=== PATIENT | male | born 1990 | race Caucasian/White ===

== ENCOUNTER 2016-11-14 18:26 | Emergency (ER) | payer SELFPAY ==
--- NOTE | 2016-11-14 19:56 | ED ---
Laceration/Wound HPI - HPI Summary HPI Summary: Patient arrives from work with a small .25cm laceration to the tip of his right index finger after cutting it with a knife. Patient denies numbness, tingling, color or temperature changes. The laceration affects the nail bed, but the nail is not cut through. Denies medications use, allergies and blood thinners. Denies previous injury to the finger. - History of Current Complaint Stated Complaint: FINGER LAC Time Seen by Provider: 11/14/16 19:20 Hx Obtained From: Patient Mechanism of Injury: Sharp/Blunt Trauma Onset/Duration: Sudden Onset Aggravating: Movement Alleviating: Compression Timing: Constant Onset Severity: Mild Current Severity: Mild Pain Intensity: 2 Pain Scale Used: 0-10 Numeric Associated Signs & Symptoms: Pain Related Hx: Occupational Injury, Dominant Hand (Right) - Allergy/Home Medications Allergies/Adverse Reactions: Allergies Allergy/AdvReac Type Severity Reaction Status Date / Time No Known Allergies Allergy Verified 11/14/16 18:28 PMH/Surg Hx/FS Hx/Imm Hx Previously Healthy: Yes Endocrine/Hematology History: Denies: Hx Diabetes, Hx Thyroid Disease Cardiovascular History: Denies: Hx Hypertension Respiratory History: Denies: Hx Asthma, Hx Chronic Obstructive Pulmonary Disease (COPD) GI History: Denies: Hx Ulcer Infectious Disease History: No Infectious Disease History: Denies: Hx Clostridium Difficile, Hx Hepatitis, Hx Human Immunodeficiency Virus (HIV), Hx of Known/Suspected MRSA, Hx Shingles, Hx Tuberculosis, Hx Known/ Suspected VRE, Hx Known/Suspected VRSA, History Other Infectious Disease, Traveled Outside the [place] in Last 30 Days - Family History Known Family History: Positive: Cardiac Disease - grandfather of CHF, Other - father and brother - migraines - Social History Occupation: Employed Full-time Lives: With Family Alcohol Use: Rare Hx Substance Use: No Substance Use Type: Reports: None Hx Tobacco Use: Yes Smoking Status (MU): Heavy Every Day Tobacco Smoker Type: Cigarettes Review of Systems Constitutional: Negative Eyes: Negative Cardiovascular: Negative Respiratory: Negative Musculoskeletal: Negative Positive: Other - small .25 laceration to the tip of the right index finger with ulnar edge of nail bed involvement, superficial and not through depth of nail. no subungual hematoma. Neurological: Negative Psychological: Normal All Other Systems Reviewed And Are Negative: Yes Physical Exam Triage Information Reviewed: Yes Vital Signs On Initial Exam: Initial Vitals Temp Pulse Resp BP Pulse Ox 97.8 F 96 16 144/79 100 11/14/16 18:28 11/14/16 18:28 11/14/16 18:28 11/14/16 18:28 11/14/16 18:28 Vital Signs Reviewed: Yes Appearance: Positive: Well-Appearing, Well-Nourished Skin: Positive: Warm, Skin Color Reflects Adequate Perfusion, Other - small .25 laceration to the tip of the right index finger with ulnar edge of nail bed involvement, superficial and not through depth of nail. no subungual hematoma. Head/Face: Positive: Normal Head/Face Inspection Eyes: Positive: Normal, LORENZA Neck: Positive: Supple, No Lymphadenopathy Respiratory/Lung Sounds: Positive: Clear to Auscultation, Breath Sounds Present Cardiovascular: Positive: Normal, RRR, Pulses are Symmetrical in both Upper and Lower Extremities Musculoskeletal: Positive: Normal, Strength/ROM Intact Neurological: Positive: Normal, Sensory/Motor Intact, Alert, Oriented to Person Place, Time, Speech Normal Psychiatric: Positive: Normal AVPU Assessment: Alert - Maria Isabel Coma Scale Best Eye Response: 4 - Spontaneous Best Motor Response: 6 - Obeys Commands Best Verbal Response: 5 - Oriented Diagnostics - Vital Signs Vital Signs Temp Pulse Resp BP Pulse Ox 11/14/16 18:30 97.8 F 92 16 144/79 100 11/14/16 18:28 97.8 F 96 16 144/79 100 - Laboratory Lab Statement: Any lab studies that have been ordered have been reviewed, and results considered in the medical decision making process. Laceration Repair Course/Dx - Course Course Of Treatment: Injury at work: small .25 laceration to the tip of the right index finger with ulnar edge of nail bed involvement, superficial and not through depth of nail. no subungual hematoma. Superifical and does not require sutures, or adhesive. No blood noticed. Wound cleaned and bandaid applied. - Differential Dx Differental Diagnoses: Avulsion, Hematoma, Joint Infection, Laceration - Clinical Impression Provider Diagnoses: Laceration Discharge - Discharge Plan Condition: Stable Disposition: HOME Patient Education Materials: Finger Laceration (ED) Referrals: No Primary Care Phys,NOPCP [Primary Care Provider] - Additional Instructions: If you notice any pressure, swelling, drainage, redness, warmth from the area or you develop a fever, come back to ED. Continue with a bandage today and tomorrow, after which you may leave open to air. Follow up with PCP if symptoms become worse.
[2016-11-14 20:50] VITALS: BP 142/80
== END 2016-11-14 20:47 | disposition home or self-care (01) ==
LOC: ED 18:26
DX: S61.210A Laceration without foreign body of right index finger without damage to nail, initial encounter (principal); W26.0XXA Contact with knife, initial encounter; Y93.9 Activity, unspecified; Y92.9 Unspecified place or not applicable
CPT/HCPCS: 99282

== ENCOUNTER 2016-12-06 13:36 | Emergency (ER) | payer OTHER ==
[2016-12-06 13:45] VITALS: BP 133/69
--- NOTE | 2016-12-06 22:37 | ED ---
Jacinda Mcnair Michael, scribed for Kristian Tang MD on 12/06/16 at 1532 . Skin Complaint - HPI Summary HPI Summary: 26 y/o male comes to the ED presenting with a indurated and erythematous lump lateral to the right nostril. The pt reports that the lump has gradually worsened and upon palpation pain is produced. He denies all other symptoms. The PMHx is significant sebaceous cyst. - History of Current Complaint Chief Complaint: EDRashSkinAbscess Time Seen by Provider: 12/06/16 14:55 Stated Complaint: LUMP ON FACE Hx Obtained From: Patient, Medical Records Onset/Duration: Started Days Ago, Still Present Skin Exposure Onset/Duration: Days Ago Timing: Constant Onset Severity: Mild Current Severity: Moderate Pain Intensity: 4 Pain Scale Used: 0-10 Numeric Skin Location: Face Character: Pain, Redness Aggravating Symptom(s): Nothing Alleviating Symptom(s): Nothing Associated Signs & Symptoms: Negative - Allergy/Home Medications Allergies/Adverse Reactions: Allergies Allergy/AdvReac Type Severity Reaction Status Date / Time No Known Allergies Allergy Verified 11/14/16 18:28 PMH/Surg Hx/FS Hx/Imm Hx Previously Healthy: No - sebaceous cyst Endocrine/Hematology History: Denies: Hx Diabetes, Hx Thyroid Disease Cardiovascular History: Denies: Hx Hypertension Respiratory History: Denies: Hx Asthma, Hx Chronic Obstructive Pulmonary Disease (COPD) GI History: Denies: Hx Ulcer - Immunization History Date of Tetanus Vaccine: 2012 Infectious Disease History: No Infectious Disease History: Denies: Hx Clostridium Difficile, Hx Hepatitis, Hx Human Immunodeficiency Virus (HIV), Hx of Known/Suspected MRSA, Hx Shingles, Hx Tuberculosis, Hx Known/ Suspected VRE, Hx Known/Suspected VRSA, History Other Infectious Disease, Traveled Outside the [place] in Last 30 Days - Family History Known Family History: Positive: Cardiac Disease - grandfather of CHF, Other - father and brother - migraines - Social History Occupation: Unemployed Lives: With Family Alcohol Use: Weekly Hx Substance Use: No Substance Use Type: Reports: Marijuana Hx Tobacco Use: Yes Smoking Status (MU): Heavy Every Day Tobacco Smoker Type: Cigarettes Review of Systems Negative: Fever Positive: Other - indurated & erythematous lump All Other Systems Reviewed And Are Negative: Yes Physical Exam Triage Information Reviewed: Yes Vital Signs On Initial Exam: Initial Vitals Temp Pulse Resp BP Pulse Ox 97.8 F 64 16 133/69 100 12/06/16 13:42 12/06/16 13:42 12/06/16 13:42 12/06/16 13:42 12/06/16 13:42 Vital Signs Reviewed: Yes Appearance: Positive: Well-Appearing, No Pain Distress Skin: Positive: Other - indurated and erythematous furuncle that is lateral to the right nostrile. Not quite pointed. Head/Face: Positive: Normal Head/Face Inspection Eyes: Positive: Normal ENT: Positive: Normal ENT inspection Neck: Positive: Supple, Nontender Respiratory/Lung Sounds: Positive: Clear to Auscultation, Breath Sounds Present Cardiovascular: Positive: RRR Abdomen Description: Positive: Nontender, Soft Bowel Sounds: Positive: Present Musculoskeletal: Positive: Normal Neurological: Positive: Normal Psychiatric: Positive: Affect/Mood Appropriate Diagnostics - Vital Signs Vital Signs Temp Pulse Resp BP Pulse Ox 12/06/16 13:45 97.8 F 64 16 133/69 100 12/06/16 13:42 97.8 F 64 16 133/69 100 - Laboratory Lab Statement: Any lab studies that have been ordered have been reviewed, and results considered in the medical decision making process. Course/Dx - Course Course Of Treatment: He's developing a boil but it's not ready to mariajose just yet. - Diagnoses Provider Diagnoses: Furuncle Discharge - Discharge Plan Condition: Stable Disposition: HOME Patient Education Materials: Furunculosis and Carbunculosis (ED) Referrals: No Primary Care Phys,NOPCP [Primary Care Provider] - Additional Instructions: Please return to the ED if your symptoms worsen. The documentation as recorded by the Jacinda lehman Michael accurately reflects the service I personally performed and the decisions made by me, Kristian Tang MD.
== END 2016-12-06 15:41 | disposition home or self-care (01) ==
LOC: ED 13:36
DX: L02.92 Furuncle, unspecified (principal); F17.210 Nicotine dependence, cigarettes, uncomplicated
CPT/HCPCS: 99281

== ENCOUNTER 2017-03-14 21:08 | Emergency (ER) | payer OTHER ==
[2017-03-14] MEDS ORDERED: Ondansetron INJ* 2 MG/ML VIAL IV ONE (22:04)
[2017-03-14] MEDS: NS 0.9% 1000 ML* 2,000 ML IV ONE (22:30)
[2017-03-14 22:39] LABS: Hematocrit 42 % (42-52); Hemoglobin 14.1 g/dl (14.0-18.0); Mean Corpuscular HGB Conc 33 g/dl (31-36); Mean Corpuscular Hemoglobin 30 pg (27-31); Mean Corpuscular Volume 88 fL (80-94); Mean Platelet Volume 8 um3 (7.4-10.4); Red Blood Count 4.78 10^6/ul (4.0-5.4); Red Cell Distribution Width 13 % (10.5-15); White Blood Count 8.2 10^3/ul (3.5-10.8)
[2017-03-14 22:53] LABS: Albumin 4.8 g/dL (3.2-5.2); BUN/Creatinine Ratio 9.9 (8-20); Calcium 10.3 mg/dL (8.6-10.3); EGFR African American 78.8 (>60); EGFR Non-African American 61.3 (>60); Globulin 2.4 g/dL (2-4); Potassium 3.3 mmol/L (3.5-5.0); Total Protein 7.2 g/dL (6.4-8.9)
[2017-03-14 22:54] LABS: Total Bilirubin 0.4 mg/dL (0.2-1.0)
[2017-03-15] MEDS ORDERED: Iohexol 300* (CONTRAST) 10 ML SDV IV ONE (00:14)
[2017-03-15 02:10] LABS: Urine Bilirubin Negative (Negative); Urine Glucose Negative (Negative); Urine Nitrite Negative (Negative)
[2017-03-15] MEDS ORDERED: Ondansetron ODT TAB* 4 MG PO ONE (03:14)
--- NOTE | 2017-03-15 03:14 | ED ---
Abdominal Pain/Male - HPI Summary HPI Summary: 26M presents with abdominal pain and nausea for several day. pain is greatest in RLQ. has never had this pain before. no vomiting, diarrhea. tried peptobismol and no relief. no previous abdominal surgeries. no one else sick. admits to decrease appetite. no dysuria, hematuira, flank pain, urgency, frequency. - History of Current Complaint Chief Complaint: EDAbdPain Stated Complaint: ABD PAIN Time Seen by Provider: 03/14/17 22:03 Pain Intensity: 4 - Allergies/Home Medications Allergies/Adverse Reactions: Allergies Allergy/AdvReac Type Severity Reaction Status Date / Time No Known Allergies Allergy Verified 11/14/16 18:28 PMH/Surg Hx/FS Hx/Imm Hx Endocrine/Hematology History: Denies: Hx Diabetes, Hx Thyroid Disease Cardiovascular History: Denies: Hx Hypertension Respiratory History: Denies: Hx Asthma, Hx Chronic Obstructive Pulmonary Disease (COPD) GI History: Denies: Hx Ulcer - Immunization History Date of Tetanus Vaccine: 2012 Infectious Disease History: No Infectious Disease History: Denies: Hx Clostridium Difficile, Hx Hepatitis, Hx Human Immunodeficiency Virus (HIV), Hx of Known/Suspected MRSA, Hx Shingles, Hx Tuberculosis, Hx Known/ Suspected VRE, Hx Known/Suspected VRSA, History Other Infectious Disease, Traveled Outside the [place] in Last 30 Days - Family History Known Family History: Positive: Cardiac Disease - grandfather of CHF, Other - father and brother - migraines - Social History Alcohol Use: Weekly Hx Substance Use: No Substance Use Type: Reports: Marijuana Hx Tobacco Use: Yes Smoking Status (MU): Heavy Every Day Tobacco Smoker Type: Cigarettes Review of Systems Negative: Fever Negative: Chest Pain Negative: Shortness Of Breath Positive: Abdominal Pain, Nausea. Negative: Vomiting, Diarrhea All Other Systems Reviewed And Are Negative: Yes Physical Exam Triage Information Reviewed: Yes Vital Signs On Initial Exam: Initial Vitals Temp Pulse Resp BP Pulse Ox 98.9 F 56 20 134/76 100 03/14/17 21:16 03/14/17 21:16 03/14/17 21:16 03/14/17 21:16 03/14/17 21:16 Vital Signs Reviewed: Yes Appearance: Positive: Well-Appearing Skin: Positive: Warm, Dry Head/Face: Positive: Normal Head/Face Inspection Eyes: Positive: Normal, EOMI, LORENZA, Conjunctiva Clear ENT: Positive: Normal ENT inspection, Pharynx normal, TMs normal Respiratory/Lung Sounds: Positive: Clear to Auscultation, Breath Sounds Present Cardiovascular: Positive: Normal, RRR Abdomen Description: Positive: Soft, Other: - RLQ tenderness, neg rovsings Bowel Sounds: Positive: Present - Maria Isabel Coma Scale Coma Scale Total: 15 Diagnostics - Vital Signs Vital Signs Temp Pulse Resp BP Pulse Ox 03/15/17 02:30 57 19 110/51 98 03/15/17 02:00 65 16 122/76 98 03/15/17 01:32 96 18 150/99 97 03/15/17 01:30 62 18 115/65 98 03/15/17 01:23 60 98 03/15/17 01:21 128/67 03/15/17 00:47 61 20 98 03/15/17 00:00 53 22 98 03/14/17 23:28 51 14 99 03/14/17 23:00 50 14 100 03/14/17 22:08 58 20 99 03/14/17 22:00 98.6 F 53 16 110/81 99 03/14/17 21:16 98.9 F 56 20 134/76 100 - Laboratory Lab Results: Lab Results 03/14/17 03/14/17 03/15/17 Range/Units 22:30 22:30 00:50 WBC 8.2 (3.5-10.8) 10^3/ul RBC 4.78 (4.0-5.4) 10^6/ul Hgb 14.1 (14.0-18.0) g/dl Hct 42 (42-52) % MCV 88 (80-94) fL MCH 30 (27-31) pg MCHC 33 (31-36) g/dl RDW 13 (10.5-15) % Plt Count 213 (150-450) 10^3/ul MPV 8 (7.4-10.4) um3 Neut % (Auto) 70.1 (38-83) % Lymph % (Auto) 17.7 L (25-47) % [place] % (Auto) 8.4 (1-9) % Eos % (Auto) 2.7 (0-6) % Baso % (Auto) 1.1 (0-2) % Absolute Neuts (auto) 5.7 (1.5-7.7) 10^3/ul Absolute Lymphs (auto) 1.5 (1.0-4.8) 10^3/ul Absolute Monos (auto) 0.7 (0-0.8) 10^3/ul Absolute Eos (auto) 0.2 (0-0.6) 10^3/ul Absolute Basos (auto) 0.1 (0-0.2) 10^3/ul Absolute Nucleated RBC 0.01 10^3/ul Nucleated RBC % 0.1 Sodium 137 (133-145) mmol/L Potassium 3.3 L (3.5-5.0) mmol/L Chloride 105 (101-111) mmol/L Carbon Dioxide 28 (22-32) mmol/L Anion Gap 4 (2-11) mmol/L BUN 14 (6-24) mg/dL Creatinine 1.42 H (0.67-1.17) mg/dL Est GFR ( Amer) 78.8 (>60) Est GFR (Non-Af Amer) 61.3 (>60) BUN/Creatinine Ratio 9.9 (8-20) Glucose 94 (70-100) mg/dL Calcium 10.3 (8.6-10.3) mg/dL Total Bilirubin 0.40 (0.2-1.0) mg/dL AST 22 (13-39) U/L ALT 19 (7-52) U/L Alkaline Phosphatase 64 (34-104) U/L C-React Prot High Sens 13.30 mg/L Total Protein 7.2 (6.4-8.9) g/dL Albumin 4.8 (3.2-5.2) g/dL Globulin 2.4 (2-4) g/dL Albumin/Globulin Ratio 2.0 (1-3) Lipase 13 (11.0-82.0) U/L Urine Color Straw Urine Appearance Clear Urine pH 5.0 (5-9) Ur Specific [place] 1.009 L (1.010-1.030) Urine Protein Negative (Negative) Urine Ketones Trace H (Negative) Urine Blood Negative (Negative) Urine Nitrate Negative (Negative) Urine Bilirubin Negative (Negative) Urine Urobilinogen Negative (Negative) Ur Leukocyte Esterase Negative (Negative) Urine Glucose Negative (Negative) Result Diagrams: 03/14/17 22:30 03/14/17 22:30 Lab Statement: Any lab studies that have been ordered have been reviewed, and results considered in the medical decision making process. - CT abd CT Interpretation: No Acute Changes - no acute abnormalilties CT Interpretation Completed By: Radiologist Abdominal Pain Fem Course/Dx - Course Course Of Treatment: 26M presents with abdominal pain and nausea for several day. pain is greatest in RLQ. has never had this pain before. no vomiting, diarrhea. tried peptobismol and no relief. no previous abdominal surgeries. no one else sick. admits to decrease appetite. no dysuria, hematuira, flank pain, urgency, frequency. on exam tenderness in RLQ. CT normal. labs normal. patient understands and agrees with plan. - Diagnoses Differential Diagnosis/HQI/PQRI: Appendicitis, Constipation, Urinary Tract Infection Provider Diagnoses: Abdominal pain Discharge - Discharge Plan Condition: Good Disposition: HOME Prescriptions: Ondansetron ODT TAB* [Zofran 4 MG Odt TAB*] 4 mg PO Q6H PRN #16 tab.odt PRN Reason: Nausea Patient Education Materials: Abdominal Pain (ED) Forms: *Work Release Referrals: [facility] [Outside] Additional Instructions: Can take Zofran every 6 hours as needed for nausea Drink small amounts of fluid as tolerated When able to eat follow BRAT diet: Bananas, rice, applesauce, toast Take ibuprofen or Tylenol for pain as needed every 6 hours Return to ED if develop any new or worsening symptoms
[2017-03-15 03:27] VITALS: BP 113/62
--- NOTE | 2017-03-15 08:01 | RAD ---
CLINICAL HISTORY: Right lower quadrant pain COMPARISON: November 16, 2009 TECHNIQUE: Multiple contiguous axial CT scans were obtained of the abdomen and pelvis after the administration of intravenous contrast. Coronal and sagittal multiplanar reformations are submitted for review. Oral contrast was administered. Delayed images were obtained through the abdomen and pelvis. FINDINGS: LUNG BASES: The lung bases are clear. LIVER: The liver is diffusely low in attenuation compared to the spleen. There are no focal hepatic parenchymal masses. BILE DUCTS: There is no intrahepatic or extrahepatic biliary dilatation. GALLBLADDER: The gallbladder is normal, without pericholecystic inflammatory change. PANCREAS: The pancreas is normal, without mass or ductal dilatation. SPLEEN: Normal in size and appearance. UPPER GI TRACT: Evaluation of the gastrointestinal tract is limited by incomplete gastric distention. The upper GI tract is unremarkable. SMALL BOWEL AND MESENTERY: The small bowel is normal in contour, course, and caliber. There is no obstruction or dilatation. COLON: The colon is normal in contour, course, caliber. There is no pericolonic inflammatory change. There is a tubular, vermiform, hollow viscus that is blind ending, and originates from the cecum, consistent with a normal appendix. There is no periappendiceal inflammatory change. This is best seen on axial images 72 through 104. ADRENALS: Normal bilaterally. KIDNEYS: The kidneys are normal in shape, size, contour, and axis. There is no hydronephrosis or nephrolithiasis. BLADDER: The bladder is incompletely distended but is grossly normal. PELVIC ORGANS: The prostate gland is normal. The seminal vesicles are symmetric. AORTA: The aorta is normal. IVC: Unremarkable LYMPH NODES: There is no lymphadenopathy by size criteria. ABDOMINAL WALL: There is no evidence for abdominal wall hernia. BONES AND SOFT TISSUES: Unremarkable OTHER: None IMPRESSION: 1. FATTY LIVER. 2. NORMAL APPENDIX 3. NO ACUTE CT PATHOLOGY OF THE VISUALIZED ABDOMEN OR PELVIS.
== END 2017-03-15 03:34 | disposition home or self-care (01) ==
LOC: ED 21:08
DX: R10.31 Right lower quadrant pain (principal); F17.210 Nicotine dependence, cigarettes, uncomplicated
CPT/HCPCS: 36415; 74177; 80053; 81003; 83690; 85025; 86141; 99283; A9270-GY; J2405; Q9967